=== PATIENT | female | born 1960 | race Caucasian/White ===

== ENCOUNTER 2022-08-06 14:44 | Outpatient (CLI) | payer OTHER, SELFPAY ==
--- NOTE | 2022-08-06 15:09 | MM_ITS ---
WS: [id number] BILATERAL 3D TOMOSYNTHESIS DIGITAL SCREENING MAMMOGRAPHY WITH CAD CLINICAL INFORMATION: SCREENING HISTORY: Screening mammogram. No current complaints. BASELINE EXAMINATION TECHNIQUE: Bilateral CC and MLO views. FINDINGS: Scattered fibroglandular densities bilaterally. A few clustered calcifications posterior depth LEFT b reast best seen on the cc view. No comparisons. Recommend further evaluation with spot magnification views for better detail. Additional incidental punctate and lucent centered calcifications. Vascular calcifications. RIGHT gabriela ast is unremarkable. MM/[place] [id number] IMPRESSION: BI-RADS: 0-Incomplete: Need additional imaging evaluation FOLLOW UP: Need Additional Imaging Recommend LEFT breast diagnostic mammography with spot magnification views of t he clustered calcifications
== END 2022-08-06 14:45 | disposition home or self-care (01) ==
LOC: RAD 15:00
PROVIDERS: PCP Nurse Practitioner Family; Visit Provider Nurse Practitioner Family
DX: Z12.31 Encounter for screening mammogram for malignant neoplasm of breast (principal)
CPT/HCPCS: 77063; 77067

== ENCOUNTER 2022-08-21 07:35 | Outpatient (CLI) | payer OTHER, SELFPAY ==
--- NOTE | 2022-08-21 08:07 | MM_ITS ---
WS: [id number] LEFT 3D TOMOSYNTHESIS DIGITAL MAMMOGRAPHY WITH CAD CLINICAL INFORMATION: EXTRA EVIEWS HISTORY: Extra views calcifications. COMPARISON: August 06, 2022 TECHNIQUE: 3 views of the left breast were obtained. FINDINGS: Scattered fibroglandular densities of the left breast. A few clustered calcifications posterior depth LEFT breast best seen on the cc view appears stable compared to previous. Some of these double bass player on the M L view compatible with milk of calcium. These are probably benign. Recommend 6 month follow-up to con firm stability. Incidental coarse lucent centered calcification. MM/[id number] IMPRESSION: BI-RADS: 3-Probably Benign FOLLOW UP: 6 Month Follow-up Recommend 6 month follow-up LEFT breast diagnostic mammography with spot magnif ication views of the calcifications
== END 2022-08-21 07:36 | disposition home or self-care (01) ==
LOC: RAD 07:37
PROVIDERS: PCP Nurse Practitioner Family; Visit Provider Nurse Practitioner Family
DX: R92.1 Mammographic calcification found on diagnostic imaging of breast (principal)
CPT/HCPCS: 77061; G0279

== ENCOUNTER 2023-03-05 09:56 | Outpatient (CLI) | payer OTHER, SELFPAY ==
--- NOTE | 2023-03-05 10:06 | MM_ITS ---
WS: [id number] LEFT 3D TOMOSYNTHESIS DIGITAL MAMMOGRAPHY WITH CAD CLINICAL INFORMATION: 6MFU HISTORY: 6-month follow-up calcifications COMPARISON: 08/21/2022 TECHNIQUE: 3 views of the left breast were obtained. FINDINGS: Scattered fibroglandular densities of the left breast. 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 These are probably benign and recommend spot magnifica tion views of the calcifications at the time of annual screening mammography in 6 months. No other suspicious findings. IMPRESSION: MM/[place] [id number] BI-RADS: 3-Probably Benign FOLLOW UP: 6 Month Follow-up Recommend spot magnification views of the LEFT breast calcifications at the nik e of annual screen mammography in 6 months.
== END 2023-03-05 09:57 | disposition home or self-care (01) ==
PROVIDERS: PCP Nurse Practitioner Family; Visit Provider Nurse Practitioner Family
DX: R92.1 Mammographic calcification found on diagnostic imaging of breast (principal)
CPT/HCPCS: 77061; G0279

== ENCOUNTER → 2023-03-12 15:39 | Outpatient (BNVA) | payer OTHER, SELFPAY | PROVIDERS: PCP Nurse Practitioner Family; Visit Provider Nurse Practitioner Family | DX: E66.9 Obesity, unspecified (principal); I10 Essential (primary) hypertension | CPT/HCPCS: 80053; 84443 ==

== ENCOUNTER 2023-03-17 12:30 | Emergency (ER) | payer OTHER, SELFPAY ==
[2023-03-17 12:31] VITALS: BP 148/81; PULSE 71; RESP 18; TEMP 36.6; O2SAT 99
--- NOTE | 2023-03-17 12:55 | W.ED.ANXIETY ---
HPI - Anxiety General: Chief Complaint: Anxiety Stated Complaint: Resp Distress Time Seen by Provider: 03/17/23 12:55 Source: patient and family Mode of arrival: ambulatory Limitations: no limitations History of Present Illness: Patient is a very nice 62-year-old female who presents to ED today along with her daughter and for concerns of what she believes to be an anxiety attack. Patient states she is under a tremendous amount of stress with work. 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 and daughter states that she certainly has a lot of anxiety because of those things. Apparently earlier today she had an incident where she called her daughter stating that her toes/feet and fingers/hands as well as around her mouth were drawing up she was hyperventilating and complaining of paresthesias to her arms and legs and felt incredibly anxious. Daughter states that speech seemed slurred on the phone. When EMS arrived they reported patient was hyperventilating. No acute focal neurologic deficits were noted at that time. They were able to alleviate all of patient's symptoms by having her deep slow breathe. Upon arrival to the emergency department patient states she feels normal other than she just feels wiped out . Patient denies chest pain, shortness of breath, difficulty breathing. PMH significant for HTN. MD complaint: anxiety Onset (ago): hour(s) Symptoms: extremity numbness/tingling, perioral numbness/tingling and muscle cramps Severity: severe Quality: improving Place: home History of similar episodes: No Provoking factors: emotional stress and work/job stress Relieving factors: deep breaths Associated symptoms: Reports diaphoresis (resolved); Deny chest pain, chills, fever(s), headache(s), malaise, nausea, palpitations, syncope or vomiting Review of Systems Const: Reports: diaphoresis (resolved); Denies: fever(s), chills, body aches, fatigue or malaise Eyes: Denies: change in vision, blurry vision, photophobia, floaters or seeing flashes Card: Denies: chest pain, palpitations, irregular heart rhythm, edema, swelling of feet/ankles, lightheadedness, syncope, pre-syncope, dyspnea on exertion, orthopnea, leg pain with exertion or acrocyanosis Resp: Reports: other (hyperventilating per EMS); Denies: dyspnea, productive cough, wheezing, hemoptysis or chest congestion GI: Denies: abdominal pain, nausea, vomiting or diarrhea : Denies: flank pain, dysuria or hematuria Musc: Reports: other (feels like her toes/fingers/hands were drawn up ); Denies: neck pain, back pain, extremity pain or joint pain Skin/Breast: Denies: rash Neuro: Reports: numbness in extremities (resolved ); Denies: headache(s), weakness in extremities or sensory changes Physical Exam Const: COMMON NORMALS: no acute distress, average body habitus, patient oriented x3, no limitations, healthy appearing, alert and well nourished ORIENTATION/CONSCIOUSNESS: Yes awake, Yes oriented to person, Yes oriented to place and Yes oriented to time HENMT: COMMON NORMALS: normocephalic and atraumatic HEAD & SCALP: normal to inspection, normocephalic and atraumatic FACE & SINUS: normal facial exam Eye: GENERAL EYE: appearance normal, both eyes and all related structures and normal light reflex DIRECT OPHTHALMOSCOPY: Yes normal light reflex Neck/C-Spine: COMMON NORMALS: full ROM, no lymphadenopathy, supple and no meningeal signs Chest: COMMONS NORMALS: normal inspection of the chest Resp: COMMON NORMALS: normal respiratory effort and clear to auscultation bilaterally AUSCULTATION: clear to auscultation bilaterally Cardio: COMMON NORMALS: regular rate and regular rhythm RATE: regular rate RHYTHM: regular rhythm GI: COMMON NORMALS: Normal to inspection, nondistended, normoactive bowel sounds present, Soft to palpation, non-tender, No hepatosplenomegaly present and no masses PALPATION: Yes Soft to palpation and Yes No hepatosplenomegaly present : COMMON NORMALS: Yes no CVA tenderness BLADDER/KIDNEY EXAM: Yes no CVA tenderness Back/Pelvis: COMMON NORMALS: no CVA tenderness and thoracic and lumbar spine normal to inspection Extremity: COMMON NORMALS: normal to inspection GENERAL: Yes normal exam except as noted Neuro: HILARIO COMA SCALE: document GCS findings Hilario coma scale eye opening: Spontaneous [place] coma scale verbal response: Orientated Hilario coma scale motor response: Obey commands [place] coma scale total score: 15 COMMON NORMALS: patient oriented x3, CN's II-XII intact bilaterally, moves all extremities, no focal motor deficits, no sensory deficits noted and gait normal SENSORIUM/ORIENTATION: Yes alert, Yes oriented to person, Yes oriented to place and Yes oriented to time MENINGEAL SIGNS: Yes no meningeal signs CRANIAL NERVES: Yes CN normal except as noted COORDINATION/BALANCE: [id number] test normal SPEECH: speech normal GAIT: Yes Normal gait present MOTOR EXAM: 5/5 motor strength present throughout COORDINATION: [id number] test normal Skin: COMMON NORMALS: no rashes or lesions noted GENERAL SKIN EXAM: no rashes or lesions noted Course Vital Signs: Vital signs: Vital Signs Temperature 97.8 F 03/17/23 12:31 Pulse Rate 71 03/17/23 12:31 Respiratory Rate 18 03/17/23 12:31 Blood Pressure 148/81 03/17/23 12:31 Pulse Oximetry 99 03/17/23 12:31 Oxygen Delivery Me thod Room Air 03/17/23 12:31 MDM - Anxiety Medical Decision Making Patient's symptoms certainly sound like an acute panic attack. Upon arrival to the ED she is asymptomatic other than just feeling wiped out . He has a completely normal neurologic exam. Blood work is unremarkable. Her vital signs are stable. EKG is normal. Patient states she does have a prescription for Celexa given to her by her PCP but has not started this. She states she also has a as needed prescription for a benzodiazepine (Xanax or Ativan) she can use as needed as well. Lab Data 03/17/23 13:22 03/17/23 13:22 Laboratory Results WBC 6.56 10^3/uL (3.29-11.43) 03/17/23 13:22 RBC 4.38 10^6/uL (3.85-5.65) 03/17/23 13:22 Hgb 13.50 g/dL (11.27-16.99) 03/17/23 13:22 Hct 41.6 % (36-47) 03/17/23 13:22 MCV 95.0 fl (85-98) 03/17/23 13:22 MCH 30.8 pg (27-33) 03/17/23 13:22 MCHC 32.5 g/dL (30-55) 03/17/23 13:22 RDW 12.5 % (12.1-15.1) 03/17/23 13:22 Plt Count 226 10^3/cmm (157-399) 03/17/23 13:22 MPV 10.7 fL (7.4-10.4) H 03/17/23 13:22 Neut % (Auto) 70.8 % 03/17/23 13:22 Lymph % (Auto) 20.1 % 03/17/23 13:22 [place] % (Auto) 7.2 % 03/17/23 13:22 Eos % (Auto) 1.1 % 03/17/23 13:22 Baso % (Auto) 0.5 % 03/17/23 13:22 Neut # (Auto) 4.65 10^3/uL (1.8-7.7) 03/17/23 13:22 Lymph # (Auto) 1.3 10^3/uL (0.8-4.8) 03/17/23 13:22 [place] # (Auto) 0.5 10^3/uL (0.2-0.9) 03/17/23 13:22 Eos # (Auto) 0.1 10^3/uL (0.0-0.8) 03/17/23 13:22 Baso # (Auto) 0.0 10^3/uL (0.0-0.1) 03/17/23 13:22 Nucleated RBC % (auto) 0 % 03/17/23 13:22 Nucleated RBCs # 0.0 /100WBC 03/17/23 13:22 Sodium 139 mmol/L (136-145) 03/17/23 13:22 Potassium 4.1 mmol/L (3.5-5.1) 03/17/23 13:22 Chloride 102 mmol/L (98-107) 03/17/23 13:22 Carbon Dioxide 27 mmol/L (22-29) 03/17/23 13:22 Anion Gap 14.1 (5-19) 03/17/23 13:22 BUN 26 mg/dL (8-23) H 03/17/23 13:22 Creatinine 0.9 mg/dL (0.5-0.9) 03/17/23 13:22 GFR Calculation 63.7 mL/min (90-130) L 03/17/23 13:22 Glucose 94 mg/dL (65-115) 03/17/23 13:22 Calculated Osmolality 293 mOsm/kg (285-295) 03/17/23 13:22 Calcium 10.1 mg/dL (8.5-10.5) 03/17/23 13:22 Magnesium 2.0 mg/dL (1.7-2.3) 03/17/23 13:22 Total Bilirubin 0.9 mg/dL (0.15-1.2) 03/17/23 13:22 AST 20 U/L (0-32) 03/17/23 13:22 ALT 24 U/L (0-33) 03/17/23 13:22 Alkaline Phosphatase 77 U/L (35-105) 03/17/23 13:22 Total Protein 7.6 g/dL (6.6-8.7) 03/17/23 13:22 Albumin 4.8 g/dL (3.5-5.2) 03/17/23 13:22 Globulin 2.8 g/dL (1.3-4.6) 03/17/23 13:22 No radiology studies performed this visit Discharge Plan Discharge Patient Disposition: Home Clinical Impression: Panic attack Condition: Stable Prescriptions: No Action olmesartan 20 mg tablet 20 mg PO DAILY Victoza 3-Mike 0.6 mg/0.1 mL (18 mg/3 mL) pen injector 3 mg SUBCUT Q24H 30 Days Qty: 15 0RF (DME) pen needle, diabetic [BD Ultra-Fine Sofia Pen Needle] 32 gauge x 5/32 needle See Rx Instructions .Route Qty: 100 0RF Rx Instructions: As directed citalopram 20 mg tablet 20 mg PO DAILY PRN (Reason: Anxiety) vitamin G69-glayp acid 0.5-1 mg Tablet 1 tab PO DAILY Vitamin D3 25 mcg (1,000 unit) Tablet,Chewable 25 mcg PO DAILY Fish Oil 300-1,000 mg Capsule 1 cap PO DAILY Discharge Orders: Discharge ED (Routine); Ordered 03/17/23 Ordered By: Abby Todd Referrals: Ana Barron APN [Primary Care Provider] - Patient Instructions: Anxiety (ED) Coding Level of Care Code ED [employer] for Azeem Lakhani
--- NOTE | 2023-03-17 13:17 | ECG_ITS ---
[facility] Test Date: 2023-03-17 Pat Name: Sawyer Otoole Department: Room: Gender: Female Client Representative: : 1960 Requested By: Abby Todd Order Number: [id number] Caitlyn MD: Shamar Bush M.D. Measurements Intervals [place] Rate: 65 P: 23 VT: 171 QRS: 11 QRSD: 75 T: 36 QT: 389 QTc: 405 Interpretive Statements SINUS RHYTHM LOW QRS VOLTAGE IN PRECORDIAL LEADS [QRS DEFLECTION < 1.0 mV IN CHEST LEADS] No previous ECG available for comparison Electronically Signed On 03-17-2023 16:43:56 CDT by Shamar Bush M.D. [id number]
[2023-03-17 13:30] LABS: Basophils % 0.5 %; Eosinophils # 0.1 10^3/uL (0.0-0.8); Eosinophils % 1.1 %; Hematocrit 41.6 % (36-47); Lymphocytes # 1.3 10^3/uL (0.8-4.8); Lymphocytes % 20.1 %; Mean Corpuscular HGB Conc 32.5 g/dL (30-55); Mean Corpuscular Hemoglobin 30.8 pg (27-33); Mean Platelet Volume 10.7 fL (7.4-10.4); Monocytes # 0.5 10^3/uL (0.2-0.9); Monocytes % 7.2 %; Neutrophils # 4.65 10^3/uL (1.8-7.7); Neutrophils % 70.8 %; Nucleated Red Blood Cells % 0 %; Platelet Count 226 10^3/cmm (157-399); Red Blood Count 4.38 10^6/uL (3.85-5.65); Red Cell Distribution Width 12.5 % (12.1-15.1); White Blood Count 6.56 10^3/uL (3.29-11.43)
[2023-03-17 13:52] LABS: Alanine Aminotransferase 24 U/L (0-33); Albumin Level 4.8 g/dL (3.5-5.2); Alkaline Phosphatase 77 U/L (35-105); Anion Gap 14.1 (5-19); Aspartate Amino Transferase 20 U/L (0-32); Blood Urea Nitrogen 26 mg/dL (8-23); Calcium 10.1 mg/dL (8.5-10.5); Carbon Dioxide 27 mmol/L (22-29); Chloride 102 mmol/L (98-107); Globulin 2.8 g/dL (1.3-4.6); Glomerular Filtration Rate 63.7 mL/min (90-130); Glucose 94 mg/dL (65-115); Osmolality Calculated 293 mOsm/kg (285-295); Potassium 4.1 mmol/L (3.5-5.1); Sodium 139 mmol/L (136-145); Total Bilirubin 0.9 mg/dL (0.15-1.2); Total Protein 7.6 g/dL (6.6-8.7)
[2023-03-17 14:14] VITALS: BP 129/94; PULSE 69; O2SAT 96
== END 2023-03-17 14:12 | disposition home or self-care (01) ==
PROVIDERS: Emergency Provider Physician Assistant; PCP Nurse Practitioner Family
DX: F41.0 Panic disorder [episodic paroxysmal anxiety] (principal)
CPT/HCPCS: 36415; 80053; 83735; 85025; 93005; 99284

== ENCOUNTER 2023-09-24 15:06 | Outpatient (CLI) | payer BC, SELFPAY ==
--- NOTE | 2023-09-24 15:14 | MM_ITS ---
WS: [id number] BILATERAL 3D TOMOSYNTHESIS DIGITAL DIAGNOSTIC MAMMOGRAPHY WITH CAD CLINICAL INFORMATION: 6 MONTH FOLLOW UP HISTORY: 6-month follow-up breast calcifications COMPARISON: 08/06/2022 and 08/21/2022 TECHNIQUE: Bilateral CC, MLO, and ML views. FINDINGS: The breasts are composed of heterogeneous fibroglandular density, which can limit the detection of sm all underlying mass lesions. Stable loosely clustered calcifications posterior depth LEFT breast unch anged from the prior examinations. This appears stable since 08/06/2022. Recommend return to annual scr eening mammography. No suspicious focal mass, asymmetry, calcifications, or architectural distortion. No evidence of amol gnancy. IMPRESSION: MM/[place] [id number] BI-RADS: 2-Benign FOLLOW UP: 1 Year Follow-up Recommend return to annual screening mammography.
== END 2023-09-24 15:07 | disposition home or self-care (01) ==
PROVIDERS: PCP Nurse Practitioner Family; Visit Provider Nurse Practitioner Family
DX: R92.8 Other abnormal and inconclusive findings on diagnostic imaging of breast (principal); R92.333 Mammographic heterogeneous density, bilateral breasts
CPT/HCPCS: 77062; G0279

== ENCOUNTER → 2024-09-22 11:18 | Outpatient (BNVA) | payer BC, SELFPAY | PROVIDERS: PCP Nurse Practitioner Family; Visit Provider Family Medicine | DX: M19.041 Primary osteoarthritis, right hand (principal); R93.6 Abnormal findings on diagnostic imaging of limbs | CPT/HCPCS: 73130 ==